=== PATIENT | male | born 1960 | race Caucasian/White ===

== ENCOUNTER 2021-06-04 13:12 | Inpatient (IN) | payer OTHER ==
[~2021-06-04] VITALS: Ht 190.5 cm; Wt 136.2 kg
[2021-06-04 13:14] VITALS: BP 147/105
[2021-06-04 13:40] LABS: ABSOLUTE NEUTROPHILS 3.8 thou/uL (1.4-8.2); BASOPHILS 0.3 % (0.0-2.0); EOSINOPHILS 0.4 % (0.0-3.0); HEMATOCRIT 49.4 % (42.0-52.0); HEMOGLOBIN 16.3 gm/dL (14.0-18.0); LYMPHOCYTES 17.5 % (24.0-44.0); MCH 28.7 pg (26.0-34.0); MCV 86.9 fL (80.0-100.0); MONOCYTES 9.8 % (1.0-8.0); PLATELET COUNT 163 thou/uL (150-400); RBC 5.68 mil/uL (4.50-6.00); RDW 14.3 % (10.5-14.5); WBC 5.2 thou/uL (4.0-11.0)
[2021-06-04 13:45] LABS: CALCIUM 8.6 mg/dL (8.5-10.1); CREATININE 1.3 mg/dL (0.7-1.3); POTASSIUM 4.4 mmol/L (3.5-5.1)
[2021-06-04 13:52] LABS: APTT 25.9 Seconds (24.5-32.8); D-DIMER 1.78 ug/mLFEU (0.19-0.50); INR 0.98; PROTIME 10.7 Seconds (10.5-12.1)
[2021-06-04 13:55] LABS: TOTAL BILIRUBIN 0.5 mg/dL (0.2-1.0)
[2021-06-04 15:47] VITALS: BP 137/93
[2021-06-04 16:13] VITALS: BP 143/90
[2021-06-04] MEDS ORDERED: NEURONTIN 300M300 M2 PO (16:44)
[2021-06-04] MEDS ORDERED: CARVEDILOL25 MG PO (16:44)
[2021-06-04] MEDS ORDERED: LIPITOR 40 MG T40 M1 PO (16:44)
[2021-06-04] MEDS ORDERED: METFORMIN HCL500 MG PO (16:45)
[2021-06-04] MEDS ORDERED: PRINIVIL40 MG PO (16:45)
[2021-06-04] MEDS ORDERED: AMLODIPINE BESY10 MG PO (16:45)
[2021-06-04 20:37] VITALS: BP 135/76
--- NOTE | 2021-06-04 23:03 | NUR ---
PT ALERT AND ORIENTED X4 . VSS AFEBRILE. UNLABORED ON 3.5 L NC SAT 94%. NO C/O PAIN. NO S/S DISTRESS. PT PRESENTLY IS RESTING QUIETLY. BED DOWN CALL LIGHT IN REACH.
[2021-06-04 23:50] VITALS: BP 104/57
[2021-06-05 03:17] VITALS: BP 144/72
[2021-06-05 04:34] LABS: HEMATOCRIT 49.5 % (42.0-52.0); HEMOGLOBIN 16.3 gm/dL (14.0-18.0); MCH 28.8 pg (26.0-34.0); MCV 87.2 fL (80.0-100.0); RBC 5.68 mil/uL (4.50-6.00); RDW 14.3 % (10.5-14.5)
[2021-06-05 04:37] LABS: WBC 1.4 thou/uL (4.0-11.0)
[2021-06-05 04:47] LABS: ALBUMIN 2.9 g/dL (3.4-5.0); ANION GAP 10 mmol/L (7-16); BUN 21 mg/dL (7-18); CHLORIDE 103 mmol/L (98-107); CO2 25 mmol/L (21-32); CREATININE 1.2 mg/dL (0.7-1.3); DIRECT BILIRUBIN < 0.1 mg/dL (<0.1-0.2); GLUCOSE 182 mg/dL (74-106); PHOSPHORUS 2.9 mg/dL (2.6-4.7); POTASSIUM 4.5 mmol/L (3.5-5.1); SGOT 33 U/L (15-37); SGPT 33 U/L (16-63); SODIUM 138 mmol/L (136-145); TOTAL BILIRUBIN 0.3 mg/dL (0.2-1.0); TOTAL PROTEIN 7.2 g/dL (6.4-8.2)
--- NOTE | 2021-06-05 06:47 | NUR ---
PT PROGRESSING SLOWLY TOWARDS D/C GOALS. VSS AFEBILE. SATS 92-94% ON 3.5 LNC. BED CHANGED . LINEN CHANGED. PARTIAL BATH COMPLETED. ATTEMPTED TO WASH PT'S HAIR BUT HE THREW HAIR CAP OFF. PT ANXIOUS AND UNCOOPERATIVE AT TIMES. HE WAS UPSET WITH STAFF FOR WAKING HIM UP TO GET BLOOD, VS ASSESSMENTS ETC.
[2021-06-05 07:13] VITALS: BP 155/106
--- NOTE | 2021-06-05 07:23 | NUR ---
NOTIFIED NO REGARDING CRITICAL WBC CT THIS AM 1.4. NO ORDERS GIVEN. PT ON LOVENOX. I DID NOT PLACE SCDS DUE TO WOUNDS AND DISCOLORED LEGS, PT'S LES ARE TENDER TO TOUGH.VSS AFEBRILE THIS AM.
--- NOTE | 2021-06-05 08:10 | NUR ---
THIS RN CONTACTED DR. VILLATORO OF WBC 1.4. NO ORDERS AT THIS TIME.
--- NOTE | 2021-06-05 09:25 | EKG ---
[facility] [place] [address] ELECTROCARDIOGRAM REPORT Name: MARYA KELLOGG GENE Room #: 352-P ADM IN M.R.#: [id number] Admission: 06/04/21 Attend Phys: Anmol Ndiaye MD Discharge: Date of : 62 Report #: [id number] [facility] ED Test Date: 2021-06-04 Test Time: 13:16:23 Pat Name: MARYA KELLOGG Department: Room: [facility] Gender: M Lapel Baster: cw : 1960 Requested By: Sindhu Evans Order Number: [id number] MD: Lawrence Kumar Measurements Intervals [place] Rate: 91 P: -13 FL: 151 QRS: -22 QRSD: 92 T: 63 QT: 356 QTc: 439 Interpretive Statements Sinus rhythm Abnormal R-wave progression, early transition Compared to ECG 08/06/1993 21:03:00 No significant change was found Electronically Signed On 06-05-2021 9:25:25 CDT by Lawrence Kumar [email or web address] <ELECTRONICALLY SIGNED> By: Lawrence Kumar MD, [facility] 06/05/21 0925 1315 15 Lawrence Kumar MD, FACC /EPI
[2021-06-05 12:33] VITALS: BP 155/106
[2021-06-05 15:19] VITALS: BP 150/85
[2021-06-05 18:00] LABS: URINE BILIRUBIN NEGATIVE (Negative); URINE BLOOD NEGATIVE (Negative); URINE CLARITY CLEAR; URINE COLOR YELLOW; URINE GLUCOSE-RANDOM* TRACE (Negative); URINE KETONES TRACE (Negative); URINE LEUKOCYTES-REFLEX NEGATIVE (Negative); URINE NITRITE-REFLEX NEGATIVE (Negative); URINE PROTEIN (DIPSTICK) TRACE (Negative); URINE SPECIFIC GRAVITY 1.025 (1.005-1.035); URINE UROBILINOGEN 0.2 E.U./dl (0.2-1.0)
--- NOTE | 2021-06-05 18:15 | NUR ---
FAMILY UPDATE: THIS RN SPOKE WITH PT SISTER, NAHID CHATTERJEE, . 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 STATES HE HAS BEEN VERY GOOD AT HIDING HIS ADDICTION FROM FAMILY, HE ONLY RECENTLY TOLD HER ABOUT ALL HIS USE LAST YEAR. PT WAS RECENTLY AT [facility] AND GIVEN MEDS FOR COUGH, PAIN, AND SLEEP. PT WAS SUPPOSED TO GO TO REHAB BUT TESTED POSITIVE FOR COVID. SHE REPORTS HE "DOES DABS, INHALES IT" DR KLEIN WAS CONTACTED FOR PSYCH CONSULT WELL POSSIBLE MEDICATION TO ASSIST PATIENT IN ANXIETY/UPSET BEHAVIORS. PT HAS BEEN CRYING/VISIBLY UPSET FOR MOST OF AFTERNOON. PT THREATENED TO LEAVE AMA DUE TO "THIS IS WORSE THAN NURSING HOME, I CANNOT BE ISOLATED WITH NO CONTACT" THIS RN ABLE TO CALM PT DOWN AND PT WAS AGREEABLE TO FURTHER TREATMENT AT THIS TIME.
--- NOTE | 2021-06-05 18:41 | NUR ---
DR KLEIN HAS NO ADDITIONAL ORDERS AT THIS TIME
--- NOTE | 2021-06-05 21:47 | NUR ---
PT VERY AGITATED AND STATING HE IS LEAVING AMA. HE CANNOT STAY IN A ROOM WITH CLOSED DOOR STATING "THIS IS WORSE THAN PENITENTIARY." EDUCATED PT ON COVID PRECAUTIONS AND TRIED TO REDIRECT. PT NOT REDIRECTABLE. CALLED PT'S SISTER TO GIVE UPDATE. SHE STATES AT [facility] THEY GAVE HIM AMBIEN AND OTHERS TO SEDATE. I EXPLAINED THAT THOSE MEDICATIONS REDUCE RESPIRATORY DRIVE. WITH PT INCREASED 02 NEEDS, THOSE MEDICATIONS WOULD BE DANGEROUS TO GIVE. PT GOT DRESSED AND WALKED OUT OF HOSPITAL. SPOKE TO [employer], [employer] AND [facility] PAT[facility]OL. [facility] SAID THEY WILL DO WELFARE CHECK.
== END 2021-06-05 20:04 | disposition left against medical advice (07) | DRG 177 ==
LOC: ER 13:12 → EROBS 15:37 → 3W 15:37
PROVIDERS: Nurse Practitioner Family; ADMIT Hospitalist; ATTEND Hospitalist
PROC: XW033E5 Introduction of Remdesivir Anti-infective into Peripheral Vein, Percutaneous Approach, New Technology Group 5 (ICD-10-PCS; principal; 2021-06-04)
DX: U07.1 COVID-19 (principal); J96.01 Acute respiratory failure with hypoxia; J12.82 Pneumonia due to coronavirus disease 2019; F15.10 Other stimulant abuse, uncomplicated; E78.00 Pure hypercholesterolemia, unspecified; F17.210 Nicotine dependence, cigarettes, uncomplicated; E11.42 Type 2 diabetes mellitus with diabetic polyneuropathy; D72.819 Decreased white blood cell count, unspecified; Z53.29 Procedure and treatment not carried out because of patient's decision for other reasons; Z88.6 Allergy status to analgesic agent; Z91.018 Allergy to other foods
CPT/HCPCS: 10879

== ENCOUNTER 2021-06-05 21:31 | Inpatient (IN) | payer OTHER ==
[~2021-06-05] VITALS: Ht 188 cm; Wt 137.2 kg
--- NOTE | ~2021-06-05 | EMS ---
[facility] [address] [place] [address] EMS Patient Care Report Name: MARYA KELLOGG GENE Room #: 352-P ADM IN M.R.#: [id number] Admission: 06/05/21 Attend Phys: Renita Middleton MD Discharge: Date of : 62 Report #: [id number] THIS REPORT FOR: //name// Report Transmitted: 06/08/2021 10:20 EMS Care Summary [place], [place]/[facility] Incident [id number] @ 06/05/2021 21:06 [address] [place] [address] Patient MARYA KELLOGG Male, 61 Years 1960 Patient Address [address] [place] [address] Patient History Substance Abuse,Novel Coronavirus (COVID-19), Patient Allergies Sulfa, Patient Medications None Reported, Chief Complaint CONFIRMED COVID 19 Disposition Transported No Lights/[place] Dispatch Reason Unknown Problem/Person Down Transported To [facility] Narrative FOUND PT LAYING ON SIDE OF ROAD WITH PD, PT WAS AMA FROM [facility] EARLIER AND WANTED TO COME BACK. CLAIMED TO BE COVID POSITIVE. TRANSPORTED BACK TO [facility] [address] [place] [address] EMS Patient Care Report Name: MARYA KELLOGG Room #: 352-P ADM IN M.R.#: [id number] Admission: 06/05/21 Attend Phys: Renita Middleton MD Discharge: Date of : 62 Report #: [id number] Initial Vitals @21:22P: 112,R: 20,BP: 125/96,Pain: 0/10,GCS: 15,SpO2: 93,Revised Trauma: 12, @21:42P: 70,R: 20,BP: 125/92,Pain: 0/10,GCS: 15,SpO2: 94,Revised Trauma: 12, Assessments @21:17MENTAL:Person Oriented,Time Oriented,Place Oriented,Event Oriented,SKIN:HEENT:Head/Face: No Abnormalities,Neck/Airway: No Abnormalities,LUNG SOUNDS:ABDOMEN:PELVIS//GI:EXTREMITIES:Left Arm: No Abnormalities,Right Arm: No Abnormalities,Left Leg: No Abnormalities,Right Leg: No Abnormalities,PULSE:NEURO: Impression COVID-19 - Confirmed by testing Procedures @21:17BLS AssessmentResponse: Unchanged Timeline 21:05,Call Received 21:05,Dispatch Notified 21:06,Dispatched 21:06,En Route 21:16,On Scene 21:17,At Patient 21:17,BLS Assessment,Response: Unchanged 21:22,BP: 125/96 M,PULSE: 112,RR: 20 R,SPO2: 93 Ox,ETCO2: ,BG: ,PAIN: 0,GCS: 15, 21:26,Depart Scene 21:42,BP: 125/92 M,PULSE: 70,RR: 20 R,SPO2: 94 Ox,ETCO2: ,BG: ,PAIN: 0,GCS: 15, 21:48,At Destination 21:50,Call Closed Disclaimer v1.1 Copyright 2020 [employer] This EMS Care Summary contains data elements from the applicable legal record (which may be displayed differently). It is designed to provide pertinent information for the following purposes: continuity of care, clinical quality, and state data reporting. The complete legal record is available to ED staff and administrators of the receiving hospital in [employer]'s Patient Tracker. All data is provided "as is."
[~2021-06-05 21:31] MED LIST: AMLODIPINE BESY10 MG PO; CARVEDILOL25 MG PO; LIPITOR 40 MG T40 M1 PO; METFORMIN HCL500 MG PO; NEURONTIN 300M300 M2 PO; PRINIVIL40 MG PO
[2021-06-05 21:38] VITALS: BP 145/98
--- NOTE | 2021-06-06 00:35 | NUR ---
PT ARRIVED BACK TO [facility] AFTER LEAVING AMA. PT REQUESTING MORE MEDICATION AND EDUCATED PT ON REASONS WHY HE CANNOT RECEIVE THEM. PT IN ROOM CRYING AND STATING "I JUST WANT SOMEONE TO TALK TO." ADMISSION COMPLETED.
[2021-06-06 02:57] VITALS: BP 147/76
[2021-06-06 04:52] LABS: CALCIUM 8.9 mg/dL (8.5-10.1); CREATININE 1.7 mg/dL (0.7-1.3); POTASSIUM 3.6 mmol/L (3.5-5.1)
[2021-06-06 04:55] LABS: HEMATOCRIT 50.3 % (42.0-52.0); HEMOGLOBIN 16.1 gm/dL (14.0-18.0); MCH 28.5 pg (26.0-34.0); MCHC 32.1 g/dL (28.0-37.0); RBC 5.65 mil/uL (4.50-6.00); RDW 14.3 % (10.5-14.5)
[2021-06-06 05:11] LABS: WBC 8.8 thou/uL (4.0-11.0)
[2021-06-06 07:06] VITALS: BP 122/77
--- NOTE | 2021-06-06 11:12 | NUR ---
Assess due to RD consult for poor appetite. Admit with COVID+ status. Hx DM, HTN ,HLD, obesity. Possible wt loss 14-23 lb per nutrition screening risk. Has reported verbal wt 350 vs 325 lb and current wt 304 lb. Intake 0-50%. On carb control diet. Has been anxious, threatening to leave AMA. Psych consult pending. Will add glucerna supplement until intake returns. Otherwise low nutrition risk.
[2021-06-06 15:25] VITALS: BP 121/78
[2021-06-06 19:57] VITALS: BP 142/86
[2021-06-07 04:45] LABS: INR 1.05; PROTIME 11.4 Seconds (10.5-12.1)
[2021-06-07 04:48] LABS: ABSOLUTE NEUTROPHILS 7.4 thou/uL (1.4-8.2); BASOPHILS 0.2 % (0.0-2.0); HEMATOCRIT 44.4 % (42.0-52.0); HEMOGLOBIN 14.8 gm/dL (14.0-18.0); LYMPHOCYTES 3.3 % (24.0-44.0); MCH 29.1 pg (26.0-34.0); MCHC 33.4 g/dL (28.0-37.0); MONOCYTES 4.7 % (1.0-8.0); PLATELET COUNT 184 thou/uL (150-400); POLYS 91.8 % (36.0-66.0); RBC 5.11 mil/uL (4.50-6.00); RDW 14.5 % (10.5-14.5)
[2021-06-07 05:06] LABS: ALBUMIN 2.8 g/dL (3.4-5.0); CALCIUM 8.7 mg/dL (8.5-10.1); CREATININE 1.2 mg/dL (0.7-1.3); POTASSIUM 4.4 mmol/L (3.5-5.1); TOTAL BILIRUBIN 0.3 mg/dL (0.2-1.0); TOTAL PROTEIN 6.2 g/dL (6.4-8.2)
[2021-06-07 05:09] LABS: DIRECT BILIRUBIN < 0.1 mg/dL (<0.1-0.2); PHOSPHORUS 3.1 mg/dL (2.5-4.9)
[2021-06-07 05:22] VITALS: BP 123/77
[2021-06-07 07:08] LABS: HIV ANTIBODY Non Reactive (Non Reactive)
[2021-06-07 08:00] VITALS: BP 125/75
[2021-06-07 15:07] VITALS: BP 145/99
--- NOTE | 2021-06-07 15:43 | NUR ---
INITIAL ASSESSMENT: Received consult. SW reviewed chart and spoke with nursing and attending physician. Pt remains in Enhanced Isolation due to COVID. Pt is afebrile and on 4L of O2. Pt is on IV abx, IV steroids ane Remdesivir. Psych consult ordered. Pt left [facility] AMA on 06/04 and was brought back to the ER after being found down on the sidewalk near [facility]. Pt with hx anxiety/DM. JASON placed call to pt's room. No answer. JASON placed call to listed contact number for pt: [phone]. No option to leave voice message. SW to follow up with pt/family at a later time to obtain assessment info and assist as needed with discharge planning.
[2021-06-07 16:07] LABS: HEP B SURFACE Ab(ANTI-HBS Non Reactive (()); HEPATITIS B SURFACE AG Negative (Negative); HEPATITIS C VIRUS AB <0.1 (0.0-0.9)
--- NOTE | 2021-06-07 16:30 | NUR ---
PT CONTINUES TO BE ON OPTIFLOW 70%, 50L. SOB WITH EXERTION.CONTINUE TO HAVE STRONG COUGH. LINGS SOUNDS COARSE AND CRACKLY. PT USUES URINAL AND BSC. FALL AND ENHANCED PRECAUTIONS CONTINUES TO BE IN PLACE.
--- NOTE | 2021-06-07 18:32 | NUR ---
CARE ASSUMED THIS AM, PT ALERT AND ORIENTED X3, DISORINTED TO TIME. PT SEEMS TEARFUL AND AGITATED AT TIMES BUT EASILY REDIRECTED AND CALMS DOWN. ON 3L OF OXYGEN. PT STATED HE HASNT HAD A BM FOR ALMOST A WEEK, DR. MCNAMARA MADE AWARE. MIRALAX GIVEN TO PT PER DR. MCNAMARA ORDER. FALL AND ENHANCED PRECAUTIONS CONTINUE TO BE IN PLACE.
[2021-06-07 19:30] VITALS: BP 141/91
--- NOTE | 2021-06-08 06:18 | NUR ---
continues on 3 liter n/c. he had an episode of behavioral upset during bedtime until past midnight. he hit his bedrails with the call light. explained that he had a period of waiting until the next med could be given. he cries and yells when he does not get his way. careplan reviewed. denies pain. resting with eyes cloased ay this time.
[2021-06-08 08:15] VITALS: BP 131/81
[2021-06-08 12:45] LABS: HEMATOCRIT 43.9 % (42.0-52.0); HEMOGLOBIN 14.4 gm/dL (14.0-18.0); MCH 28.7 pg (26.0-34.0); MCHC 32.7 g/dL (28.0-37.0); MCV 87.8 fL (80.0-100.0); RDW 14.4 % (10.5-14.5)
[2021-06-08 13:09] LABS: ALBUMIN 2.7 g/dL (3.4-5.0); ANION GAP 7 mmol/L (7-16); BUN 34 mg/dL (7-18); CALCIUM 8.7 mg/dL (8.5-10.1); CHLORIDE 107 mmol/L (98-107); CO2 24 mmol/L (21-32); CREATININE 1.2 mg/dL (0.7-1.3); DIRECT BILIRUBIN < 0.1 mg/dL (<0.1-0.2); GLUCOSE 241 mg/dL (74-106); PHOSPHORUS 3.4 mg/dL (2.5-4.9); POTASSIUM 4.9 mmol/L (3.5-5.1); SGOT 23 U/L (15-37); SGPT 35 U/L (30-65); SODIUM 138 mmol/L (136-145); TOTAL BILIRUBIN 0.2 mg/dL (0.2-1.0)
--- NOTE | 2021-06-08 14:15 | NUR ---
PT IS CURRENTLY ON 2L OF O2, SATS BTWN 93-97%. MOSTLY SLEEPY DURING SHIFT. ALERT AND ORIENTED X4. PT SEEMS LESS AGITATED AND TEARFUL TODAY. FALL AND ENHANCED PREC. IN PLACE. WILL CONTINUE TO MONITOR
--- NOTE | 2021-06-08 15:42 | NUR ---
SW reviewed chart and spoke with nursing and attending physician. Pt remains in Enhanced Isolation due to COVID. Pt is afebrile and on 3L of O2. Pt is on IV abx and Remdesivir. Psych evaluated pt last evening. SW placed several calls to pt's room. Line was busy. Plan is for pt to discharge home when medically stable. JASON is following to assist as needed with discharge planning.
[2021-06-08 15:45] VITALS: BP 139/76
[2021-06-08 20:17] VITALS: BP 154/77
[2021-06-08 21:06] LABS: SYPHILIS AB Non Reactive (Non Reactive)
--- NOTE | 2021-06-08 22:28 | NUR ---
PT ALERT X4. PERIODS OF CALM AND THEN CRYING AND DEPRESSED NOTED TONIGHT. PT ANXIOUS TO BE GOING HOME TOMORROW. VSS AFEBRILE. SAT 95% ON 1LNC. NO C/O PAIN. NO S/S DISTRESS.
[2021-06-09 02:44] VITALS: BP 141/82
--- NOTE | 2021-06-09 04:15 | NUR ---
ROGELIO AND ORIENTED X4 THIS AM. HE WAS YELLING AND CURSING IN THE ROOM. HE C/O THAT SOMEONE THREW AWAY HIS CHEW. HE WAS THREATENING TO GO AMA. I SPOKKE WITH ORAL SURGERY ASSISTANT, LEFT [facility] [place] FOR DR GOOD, AND CALLED HIS SISTER. FRANCISCOLUISA GIVEN PO. HE AGREED TO STAY UNTIL 0800 AM TO SPEAK WITH THE DR. HE IS RESTIONG QUIETLY PRESENTLY.
[2021-06-09 05:12] LABS: HEMATOCRIT 45.5 % (42.0-52.0); HEMOGLOBIN 15.2 gm/dL (14.0-18.0); MCH 28.9 pg (26.0-34.0); MCHC 33.4 g/dL (28.0-37.0); MCV 86.7 fL (80.0-100.0); RBC 5.25 mil/uL (4.50-6.00); RDW 14.5 % (10.5-14.5)
[2021-06-09 06:28] LABS: CALCIUM 8.4 mg/dL (8.5-10.1); CREATININE 1.3 mg/dL (0.7-1.3); POTASSIUM 4.8 mmol/L (3.5-5.1)
== END 2021-06-09 05:45 | disposition left against medical advice (07) | DRG 177 ==
LOC: ER 21:31 → EROBS 21:58 → 3W 21:58
PROVIDERS: Hospitalist; Nurse Practitioner Family; Specialist; ADMIT Internal Medicine; ATTEND Internal Medicine
PROC: XW033E5 Introduction of Remdesivir Anti-infective into Peripheral Vein, Percutaneous Approach, New Technology Group 5 (ICD-10-PCS; principal; 2021-06-05)
DX: U07.1 COVID-19 (principal); J96.01 Acute respiratory failure with hypoxia; E78.00 Pure hypercholesterolemia, unspecified; F41.9 Anxiety disorder, unspecified; E11.42 Type 2 diabetes mellitus with diabetic polyneuropathy; E78.5 Hyperlipidemia, unspecified; I10 Essential (primary) hypertension; Z53.29 Procedure and treatment not carried out because of patient's decision for other reasons; F17.210 Nicotine dependence, cigarettes, uncomplicated; F99 Mental disorder, not otherwise specified; F43.20 Adjustment disorder, unspecified; F12.129 Cannabis abuse with intoxication, unspecified; Z89.422 Acquired absence of other left toe(s); Z89.421 Acquired absence of other right toe(s); Z88.2 Allergy status to sulfonamides; Z88.8 Allergy status to other drugs, medicaments and biological substances; Z88.6 Allergy status to analgesic agent; Z91.018 Allergy to other foods
CPT/HCPCS: 10080